=== PATIENT | female | born 1975 | race Caucasian/White ===

== ENCOUNTER 2020-06-03 14:19 | Outpatient (CLI) | payer OTHER | END 2020-06-03 23:59 | disposition home or self-care (01) | LOC: STAR 14:19 | PROVIDERS: ATTEND Surgery | DX: Z20.822 Contact with and (suspected) exposure to COVID-19 (principal); Z15.01 Genetic susceptibility to malignant neoplasm of breast | CPT/HCPCS: U0003 ==

== ENCOUNTER 2020-06-09 09:07 | Day surgery (SDC) | payer OTHER ==
[~2020-06-09] VITALS: Ht 162.6 cm; Wt 82.8 kg
[~2020-06-09 09:07] MED LIST: BACITRACIN 50,000 UNIT ONE; BUPIVACAINE/PF 0.5% ONE; CEFAZOLIN 1,000 MG ONE; EPINEPHRINE 1 MG/ML, 1ML ONE; GENTAMICIN 80 MG/2 ML ONE; ISOSULFAN BLUE 10 MG/ML, 5ML IV ONE
[2020-06-09] MEDS ORDERED: LIDOCAINE-MPF 1%, 2ML INFIL ONE (09:30)
[2020-06-09] MEDS ORDERED: LACTATED RINGERS 1,000 ML IV SCH (09:30)
[2020-06-09] MEDS ORDERED: CHLORHEXIDINE 15 ML UDC PO ONE (09:30)
[2020-06-09 10:30] LABS: BASOPHILS % (AUTO) 1 % (0-1); EOSINOPHILS % (AUTO) 4 % (1-7); LYMPHOCYTES % (AUTO) 27 % (22-44); MEAN CORPUSCULAR HEMOGLOBIN 30.7 pg (27.0-34.8); MEAN CORPUSCULAR HGB CONC 34.4 g/dL (32.4-35.8); MEAN PLATELET VOLUME 7.7 fL (7.4-10.4); MONOCYTES % (AUTO) 7 % (2-9); NEUTROPHILS % (AUTO) 62 % (42-75); PLATELET COUNT 306 x10^3/uL (130-400); RED CELL DISTRIBUTION WIDTH 13.3 % (9.6-15.2)
[2020-06-09] MEDS ORDERED: INDOCYANINE GREEN 25 MG VIAL ONE (10:30)
[2020-06-09 10:31] LABS: MD NO
[2020-06-09] MEDS ORDERED: FENTANYL PF 250 MCG/5ML ONE ×2 (10:48→12:52)
[2020-06-09] MEDS ORDERED: MIDAZOLAM 1 MG/ML, 2ML ONE (10:48)
[2020-06-09] MEDS ORDERED: DEXAMETHASONE 4 MG/ML, 1ML ONE (11:24)
[2020-06-09] MEDS ORDERED: CEFAZOLIN 1,000 MG ONE ×2 (11:24→13:03)
[2020-06-09] MEDS ORDERED: ROCURONIUM 10 MG/ML,10ML ONE (11:24)
[2020-06-09] MEDS ORDERED: ONDANSETRON 2MG/ML, 2ML ONE (11:24)
[2020-06-09] MEDS ORDERED: METOCLOPRAMIDE 5 MG/ML, 2ML ONE (11:24)
[2020-06-09] MEDS ORDERED: SUCCINYLCHOLINE 20 MG/ML, 10ML ONE (11:24)
[2020-06-09] MEDS ORDERED: ACETAMINOPHEN 325 MG TABLET PO PRN (11:30)
[2020-06-09] MEDS ORDERED: hydrALAzine 20 MG/ML, 1ML IV PRN (11:30)
[2020-06-09] MEDS ORDERED: METHOCARBAMOL 1,000 MG in DEXTROSE 5% 100 ML IV PRN (11:30)
[2020-06-09] MEDS ORDERED: LORazepam 2 MG/ML, 1ML IVPush PRN (11:30)
[2020-06-09] MEDS ORDERED: HYDROmorphone 1 MG/ML, 1ML INJ IVPush PRN (11:30)
[2020-06-09] MEDS ORDERED: FENTANYL PF 100 MCG/2ML IV PRN (11:30)
[2020-06-09] MEDS ORDERED: MEPERIDINE/PF 25MG/0.5ML IVPush PRN (11:30)
[2020-06-09] MEDS ORDERED: EPHEDRINE 50 MG/ML, 1ML IVPush PRN (11:30)
[2020-06-09] MEDS ORDERED: LABETALOL 5MG/ML, 20ML IV PRN (11:30)
[2020-06-09] MEDS ORDERED: ONDANSETRON 2MG/ML, 2ML IVPush PRN (11:30)
[2020-06-09] MEDS ORDERED: ACETAMINOPHEN 500 MG TABLET PO ONE (11:30)
[2020-06-09] MEDS ORDERED: PROMETHAZINE 25 MG/ML, 1ML IVPush PRN (11:30)
[2020-06-09] MEDS ORDERED: OXYcodone 5 MG/5 ML ORAL.SOL UDC PO PRN (11:30)
[2020-06-09] MEDS ORDERED: OXYcodone IR 5MG TABLET PO ONE (11:30)
[2020-06-09] MEDS ORDERED: PROPOFOL 50 ML ONE ×2 (11:49→12:39)
[2020-06-09] MEDS ORDERED: GENTAMICIN 80 MG/2 ML ONE (13:03)
[2020-06-09] MEDS ORDERED: BACITRACIN 50,000 UNIT ONE (13:03)
== END 2020-06-09 17:22 | disposition home or self-care (01) ==
LOC: OUT 09:07
PROVIDERS: ATTEND Surgery
DX: Z15.01 Genetic susceptibility to malignant neoplasm of breast (principal); Z85.048 Personal history of other malignant neoplasm of rectum, rectosigmoid junction, and anus; Z72.89 Other problems related to lifestyle; Z80.3 Family history of malignant neoplasm of breast; Z98.890 Other specified postprocedural states
CPT/HCPCS: 19303; 19357; 36415; 81025; 85025; 88305; 88307; C1729; C1762; C1789; J0171; J0330; J0690; J1100; J1580; J2250; J2405; J2704; J2765; J3010; J7120

== ENCOUNTER 2020-11-03 13:41 | Day surgery (SDC) | payer OTHER ==
[~2020-11-03] VITALS: Ht 160 cm; Wt 82.7 kg
[2020-11-03] MEDS ORDERED: LABETALOL 5MG/ML, 20ML IV PRN (14:00)
[2020-11-03] MEDS ORDERED: MEPERIDINE/PF 25MG/0.5ML IVPush PRN (14:00)
[2020-11-03] MEDS ORDERED: hydrALAzine 20 MG/ML, 1ML IV PRN (14:00)
[2020-11-03] MEDS ORDERED: FENTANYL PF 100 MCG/2ML IV PRN (14:00)
[2020-11-03] MEDS ORDERED: ONDANSETRON 2MG/ML, 2ML IVPush PRN (14:00)
[2020-11-03] MEDS ORDERED: OXYcodone 5 MG/5 ML ORAL.SOL UDC PO PRN (14:00)
[2020-11-03] MEDS ORDERED: EPHEDRINE 50 MG/ML, 1ML IVPush PRN (14:00)
[2020-11-03] MEDS ORDERED: PROMETHAZINE 25 MG/ML, 1ML IVPush PRN (14:00)
[2020-11-03] MEDS ORDERED: ACETAMINOPHEN 325 MG TABLET PO PRN (14:00)
[2020-11-03] MEDS ORDERED: HYDROmorphone 1 MG/ML, 1ML INJ IVPush PRN (14:00)
[2020-11-03] MEDS ORDERED: MIDAZOLAM 1 MG/ML, 2ML ONE (14:39)
[2020-11-03] MEDS ORDERED: FENTANYL PF 250 MCG/5ML ONE (14:40)
[2020-11-03] MEDS ORDERED: CEFAZOLIN 1,000 MG ONE ×2 (14:41→15:29)
[2020-11-03] MEDS ORDERED: SUCCINYLCHOLINE 20 MG/ML, 10ML ONE (14:41)
[2020-11-03] MEDS ORDERED: DEXAMETHASONE 4 MG/ML, 1ML ONE (14:41)
[2020-11-03] MEDS ORDERED: PROPOFOL 10 MG/ML, 20ML ONE (14:41)
[2020-11-03] MEDS ORDERED: ONDANSETRON 2MG/ML, 2ML ONE (14:41)
[2020-11-03] MEDS ORDERED: SODIUM CHLORIDE 0.9% PF 10ML ONE (14:41)
[2020-11-03] MEDS ORDERED: LIDOCAINE-MPF 2% ,5ML ONE ×2 (14:41→15:29)
[2020-11-03] MEDS ORDERED: CHLORHEXIDINE 15 ML UDC ONE (15:08)
[2020-11-03 15:16] VITALS: BP 128/88
[2020-11-03] MEDS ORDERED: GENTAMICIN 80 MG/2 ML ONE ×2 (15:28)
[2020-11-03] MEDS ORDERED: SODIUM BICARBONATE 1 MEQ/ML, 50ML VIAL ONE (15:29)
[2020-11-03] MEDS ORDERED: BUPIVACAINE/PF 0.5% ONE (15:29)
[2020-11-03] MEDS ORDERED: VANCOMYCIN 1,000 MG ONE (15:29)
[2020-11-03] MEDS ORDERED: EPINEPHRINE 1 MG/ML, 1ML ONE (15:29)
[2020-11-03] MEDS ORDERED: LACTATED RINGERS 1,000 ML IV SCH (15:30)
[2020-11-03] MEDS ORDERED: CHLORHEXIDINE 15 ML UDC PO ONE (15:30)
[2020-11-03 15:48] LABS: BASOPHILS % (AUTO) 1 % (0-1); EOSINOPHILS % (AUTO) 3 % (1-7); LYMPHOCYTES % (AUTO) 38 % (22-44); MEAN CORPUSCULAR HEMOGLOBIN 29.1 pg (27.0-34.8); MEAN CORPUSCULAR HGB CONC 34.2 g/dL (32.4-35.8); MEAN PLATELET VOLUME 7.5 fL (7.4-10.4); MONOCYTES % (AUTO) 8 % (2-9); NEUTROPHILS % (AUTO) 50 % (42-75); PLATELET COUNT 278 x10^3/uL (130-400); RED BLOOD COUNT 4.94 x10^6/uL (3.82-5.3); RED CELL DISTRIBUTION WIDTH 14.8 % (9.6-15.2)
[2020-11-03] MEDS ORDERED: OXYcodone 5 MG/5 ML ORAL.SOL UDC ONE (17:04)
[2020-11-03] MEDS ORDERED: MEPERIDINE/PF 25MG/ML,1ML ONE (17:04)
[2020-11-03] MEDS ORDERED: ACETAMINOPHEN 650 MG/20.3 ML UDC ONE (17:23)
== END 2020-11-03 19:10 | disposition home or self-care (01) ==
LOC: OR 13:41
PROVIDERS: ATTEND Plastic Surgery
DX: Z42.8 Encounter for other plastic and reconstructive surgery following medical procedure or healed injury (principal); Z15.01 Genetic susceptibility to malignant neoplasm of breast; Z79.899 Other long term (current) drug therapy; Z90.13 Acquired absence of bilateral breasts and nipples
CPT/HCPCS: 11970; 15570; 15771; 15772; 36415; 85025; C1729; C1789; J0171; J0330; J0690; J1100; J1580; J2175; J2250; J2405; J2704; J3010; J3370